=== PATIENT | female | born 1975 | race Caucasian/White ===

== ENCOUNTER → 2017-07-22 | Outpatient (CLI) | payer OTHER ==
[~2017-07-22] MED LIST: ALBU8HFA2 INH; ALBU90I INH; ALBU90OI INH; ALBU90OI61 INH; ALPR.5 PO; AZIT250 PO; Acular3 ML BOTHEYES; Aspir-Trin325 MG PO; BIPOLAR MED; BIRTH CONTROL; BLOOD PRESSURE; CARV25; CARV3.125 PO; CEPH500 PO; CIPR500 PO; CLIN300 PO; CODACE30 PO; CRUTCH4 USE; CYCL10 PO; Cleocin HCl150 MG PO; DEPAKOTE PO; DIAZ10 PO; DIVA500EC; DIVA500EC PO; DOCU100 PO; DOXY100 PO; ERYT.5TO LEFTEYE; FERR325 PO; FURO20 PO; FURO40 PO; Flonase 0.05% N16 GM; GUAI600T33 PO; HYDACE10B PO; HYDACE5 PO; HYDRA50; IBUP600 PO; IBUP800 PO; KCL; Keflex500 MG PO; LASIX; LEVFLO500 PO; LITH300C PO; LITH450ER; MAGCIT300 PO; MONDOXYNE NL100 MG PO; NAPR375 PO; NAPR500 PO; NYST100TC TOP; Norco 5-325 Ta1 EACH PO; OXYACE5T PO; PARO10 PO; PHENA100 PO; POTCHL10ER PO; POTCHL20ER PO; PRED20 PO; PROM25 PO; Percocet 5-3251 EACH PO; Prednisone20 MG PO; QUET100 PO; QUET25; RXCLIN PO; RXPROM25 PO; RXTRAM50 PO; Robaxin500 MG PO; SERT100 PO; SERT25 PO; SULTRIDS PO; TRAM50 PO; TRAZ150T57 PO; TRAZADONE; TRIA80TC TOP; Ultram50 MG PO; Vibramycin100 MG PO; YASMINE; [UNRECOGNIZED DRUG - REMARK]; [UNRECOGNIZED DRUG - REMARK]; [UNRECOGNIZED DRUG - REMARK]; [UNRECOGNIZED DRUG - REMARK]; [UNRECOGNIZED DRUG - REMARK]; [UNRECOGNIZED DRUG - REMARK]; [UNRECOGNIZED DRUG - REMARK]
== END | disposition home or self-care (01) ==
LOC: LAB EV 15:38
DX: N10 Acute pyelonephritis (principal)
CPT/HCPCS: 87086

== ENCOUNTER → 2017-07-25 | Outpatient (CLI) | payer OTHER | LOC: LAB SHORT 16:02 | DX: N39.0 Urinary tract infection, site not specified (principal) | CPT/HCPCS: 87086 ==

== ENCOUNTER 2017-08-12 10:15 | Day surgery (SDC) | payer OTHER ==
[~2017-08-12] VITALS: Ht 172.7 cm; Wt 165.1 kg
== END 2017-08-12 23:34 | disposition home or self-care (01) ==
LOC: ORSCMMR 10:15
PROVIDERS: Internal Medicine Gastroenterology
PROC: 0DBL8ZX Excision of Transverse Colon, Via Natural or Artificial Opening Endoscopic, Diagnostic (ICD-10-PCS; principal; 2017-08-12 10:45)
DX: Z12.11 Encounter for screening for malignant neoplasm of colon (principal); D12.3 Benign neoplasm of transverse colon; Z83.71 Family history of colonic polyps; I89.0 Lymphedema, not elsewhere classified; E11.9 Type 2 diabetes mellitus without complications; I10 Essential (primary) hypertension; Z86.711 Personal history of pulmonary embolism; J45.909 Unspecified asthma, uncomplicated; E66.01 Morbid (severe) obesity due to excess calories; Z68.43 Body mass index [BMI] 50.0-59.9, adult; Z87.891 Personal history of nicotine dependence; Z79.899 Other long term (current) drug therapy
CPT/HCPCS: 82947; 88305; J7120

== ENCOUNTER 2018-02-20 23:30 | Emergency (ER) | payer OTHER ==
[~2018-02-20] VITALS: Ht 175.3 cm; Wt 158.8 kg
[2018-02-21 01:06] LABS: Anion Gap 11 mmol/L (6-16); Blood Urea Nitrogen 7 mg/dL (8-24); CO2, Blood 23 mmol/L (21-32); Calcium, Blood 8.2 mg/dL (8.5-10.1); Chloride, Blood 109 mmol/L (98-108); Glomerular Filtration Rate >60 (60-); Glucose, Blood 85 mg/dL (70-99); Potassium, Blood 3.4 mmol/L (3.5-5.5); Sodium, Blood 143 mmol/L (136-145)
== END 2018-02-21 02:53 | disposition home or self-care (01) ==
LOC: ER 23:30
PROVIDERS: Emergency Medicine
DX: R60.0 Localized edema (principal); F31.9 Bipolar disorder, unspecified; E11.9 Type 2 diabetes mellitus without complications; I10 Essential (primary) hypertension; Z88.0 Allergy status to penicillin; Z88.8 Allergy status to other drugs, medicaments and biological substances; Z79.899 Other long term (current) drug therapy; Z87.891 Personal history of nicotine dependence
CPT/HCPCS: 36415; 80048; 93970; 99284-25

== ENCOUNTER 2018-11-19 23:07 | Emergency (ER) | payer OTHER ==
[~2018-11-19] VITALS: Ht 175.3 cm; Wt 140.2 kg
[2018-11-20] MEDS ORDERED: CETI5 PO (00:37)
== END 2018-11-20 01:40 | disposition home or self-care (01) ==
LOC: ER 23:07
DX: R05 Cough (principal); E11.9 Type 2 diabetes mellitus without complications; F31.9 Bipolar disorder, unspecified; I10 Essential (primary) hypertension; J45.909 Unspecified asthma, uncomplicated; Z88.0 Allergy status to penicillin; Z88.8 Allergy status to other drugs, medicaments and biological substances; Z86.711 Personal history of pulmonary embolism; Z87.891 Personal history of nicotine dependence
CPT/HCPCS: 71046; 93005; 93010; 99283-25

== ENCOUNTER → 2018-12-10 | Outpatient (CLI) | payer OTHER ==
[~2018-12-10] MED LIST changes: +CETI5 PO
== END | disposition home or self-care (01) ==
LOC: LAB SHORT 16:01 → LAB EV 16:01
DX: L08.9 Local infection of the skin and subcutaneous tissue, unspecified (principal)
CPT/HCPCS: 87070; 87077; 87147; 87186; 87205

== ENCOUNTER → 2020-05-06 | Outpatient (CLI) | payer OTHER ==
[2020-05-07 15:08] LABS: HPV 16 Negative (Negative); HPV 18 Negative (Negative); HPV OTHER HR TYPES Negative (Negative)
== END | disposition home or self-care (01) ==
LOC: OLS 14:46 → LAB SHORT 14:46
PROVIDERS: Obstetrics & Gynecology
DX: Z01.419 Encounter for gynecological examination (general) (routine) without abnormal findings (principal)
CPT/HCPCS: 87624; G0123

== ENCOUNTER 2021-04-05 20:57 | Emergency (ER) | payer OTHER ==
[~2021-04-05] VITALS: Ht 175.3 cm; Wt 136.1 kg
[2021-04-05 21:47] LABS: BASOPHILS ABSOLUTE AUTO 0.07 K/mm3 (0.00-0.23); BASOPHILS PERCENT AUTO 0 % (0-2); EOSINOPHILS ABSOLUTE AUTO 0.38 K/mm3 (0.00-0.68); EOSINOPHILS PERCENT AUTO 2 % (0-6); Hematocrit 41.1 % (33.0-51.0); Hemoglobin 13.4 g/dL (11.5-16.0); Mean Corpuscular HGB 24.5 pg (26.0-34.0); Mean Corpuscular HGB Conc 32.6 g/dL (31.5-36.5); Mean Corpuscular Volume 75 fL (80-100); Platelet Count 290 K/mm3 (150-400); RDW Coefficient Variation 18.2 % (11.7-14.2); RDW Standard Deviation 49.3 fL (35.1-46.3); Red Blood Cell Count 5.47 M/mm3 (3.80-5.20); White Blood Cell Count 19.96 K/mm3 (4.00-11.30)
[2021-04-05 21:48] LABS: IMMATURE GRAN ABSOLUTE AUTO 0.17 K/mm3 (0.00-0.10); IMMATURE GRAN PERCENT AUTO 1 % (0-1); LYMPHOCYTES ABSOLUTE AUTO 1.34 K/mm3 (0.84-5.20); LYMPHOCYTES PERCENT AUTO 7 % (21-46); MONOCYTES ABSOLUTE AUTO 2.24 K/mm3 (0.16-1.47); MONOCYTES PERCENT AUTO 11 % (4-13); NEUTROPHILS ABSOLUTE AUTO 15.76 K/mm3 (1.96-9.15); NEUTROPHILS PERCENT AUTO 79 % (41-73)
[2021-04-05 22:04] LABS: Alanine Aminotransfer (ALT/SGP 71 U/L (12-78); Albumin, Blood 2.6 g/dL (3.4-5.0); Albumin/Globulin Ratio 0.5 (0.8-1.8); Alk Phos 147 U/L (50-136); Anion Gap 5 mmol/L (6-16); Aspartate Aminotrans (AST/SGOT 75 U/L (12-37); Bilirubin, Total 0.8 mg/dL (0.1-1.0); Blood Urea Nitrogen 10 mg/dL (8-24); Bun/Creatinine Ratio 11.4 (12.0-20.0); CO2, Blood 23 mmol/L (21-32); Calcium, Blood 9.3 mg/dL (8.5-10.1); Chloride, Blood 111 mmol/L (98-108); Creatinine, Blood 0.88 mg/dL (0.40-1.00); Globulin, Blood 4.8 g/dL (2.2-4.0); Glomerular Filtration Rate >60 (60-); Glucose, Blood 93 mg/dL (70-99); Potassium, Blood 3.6 mmol/L (3.5-5.5); Sodium, Blood 139 mmol/L (136-145); Total Protein, Blood 7.4 g/dL (6.4-8.2)
[2021-04-05 23:06] LABS: Source, Urine Voided
[2021-04-05 23:13] LABS: Bilirubin, Urine Neg (Neg); Blood, Urine 1+ (Neg); Glucose Qualitative, Urine Neg (Neg); Ketones, Urine Neg (Neg); Leukocyte Esterase, Urine 2+ (Neg); Nitrite, Urine Neg (Neg); Protein, Urine 1+ (Neg); Urobilinogen, Urine NORM (Normal); pH, Urine 6.5 (5.0-8.0)
[2021-04-05 23:14] LABS: Appearance, Urine Clear (Clear); Color, Urine Yellow (P-Yellow)
[2021-04-05 23:15] LABS: Bacteria Mod /hpf; Red Blood Cells, Urine 0-2 /hpf (0-2); Squamous Epithelial Cells Mod /hpf (Few)
[2021-04-05] MEDS ORDERED: CEPH500 PO (23:51)
== END 2021-04-06 00:20 | disposition home or self-care (01) ==
LOC: ER 20:57
PROVIDERS: Emergency Medicine; Physician Assistant
DX: L03.116 Cellulitis of left lower limb (principal); I10 Essential (primary) hypertension; E11.9 Type 2 diabetes mellitus without complications; J45.909 Unspecified asthma, uncomplicated; Z88.0 Allergy status to penicillin; Z88.8 Allergy status to other drugs, medicaments and biological substances; Z79.899 Other long term (current) drug therapy; Z86.711 Personal history of pulmonary embolism; Z87.891 Personal history of nicotine dependence
CPT/HCPCS: 36415; 80053; 81001; 85025; 87086; 96374; 96375; 99283-25; J0696; J1885

== ENCOUNTER 2021-05-18 18:57 | Emergency (ER) | payer OTHER ==
[~2021-05-18] VITALS: Ht 175.3 cm; Wt 151.9 kg
== END 2021-05-18 20:57 | disposition home or self-care (01) ==
LOC: ER 18:57
DX: R22.42 Localized swelling, mass and lump, left lower limb (principal); I10 Essential (primary) hypertension; E11.9 Type 2 diabetes mellitus without complications; J45.909 Unspecified asthma, uncomplicated; Z87.891 Personal history of nicotine dependence; Z88.0 Allergy status to penicillin; Z79.899 Other long term (current) drug therapy; Z88.8 Allergy status to other drugs, medicaments and biological substances
CPT/HCPCS: 93971; 99283-25

== ENCOUNTER → 2021-06-05 | Outpatient (CLI) | payer OTHER | END | disposition home or self-care (01) | LOC: LAB 17:03 → LAB SHORT 17:03 | DX: L02.416 Cutaneous abscess of left lower limb (principal) | CPT/HCPCS: 87070; 87075; 87077; 87186; 87205 ==

== ENCOUNTER 2021-06-11 15:21 | Inpatient (IN) | payer OTHER ==
[~2021-06-11] VITALS: Ht 175.3 cm; Wt 151.0 kg
[2021-06-11 16:26] LABS: BASOPHILS ABSOLUTE AUTO 0.05 K/mm3 (0.00-0.23); BASOPHILS PERCENT AUTO 1 % (0-2); EOSINOPHILS ABSOLUTE AUTO 0.47 K/mm3 (0.00-0.68); EOSINOPHILS PERCENT AUTO 6 % (0-6); Hematocrit 38.9 % (33.0-51.0); Hemoglobin 12.4 g/dL (11.5-16.0); IMMATURE GRAN ABSOLUTE AUTO 0.09 K/mm3 (0.00-0.10); IMMATURE GRAN PERCENT AUTO 1 % (0-1); LYMPHOCYTES ABSOLUTE AUTO 2.29 K/mm3 (0.84-5.20); LYMPHOCYTES PERCENT AUTO 29 % (21-46); MONOCYTES ABSOLUTE AUTO 0.76 K/mm3 (0.16-1.47); MONOCYTES PERCENT AUTO 10 % (4-13); Mean Corpuscular HGB 25.4 pg (26.0-34.0); Mean Corpuscular HGB Conc 31.9 g/dL (31.5-36.5); Mean Corpuscular Volume 80 fL (80-100); Mean Platelet Volume 8.3 fL (9.1-12.4); NEUTROPHILS ABSOLUTE AUTO 4.26 K/mm3 (1.96-9.15); NEUTROPHILS PERCENT AUTO 54 % (41-73); Platelet Count 431 K/mm3 (150-400); RDW Coefficient Variation 18.2 % (11.7-14.2); RDW Standard Deviation 52.6 fL (35.1-46.3); Red Blood Cell Count 4.88 M/mm3 (3.80-5.20); White Blood Cell Count 7.92 K/mm3 (4.00-11.30)
[2021-06-11 16:36] LABS: Albumin, Blood 2.4 g/dL (3.4-5.0); Albumin/Globulin Ratio 0.5 (0.8-1.8); Bilirubin, Total 0.4 mg/dL (0.1-1.0); Calcium, Blood 9.3 mg/dL (8.5-10.1); Creatinine, Blood 1.09 mg/dL (0.40-1.00); Globulin, Blood 4.8 g/dL (2.2-4.0); Potassium, Blood 3.9 mmol/L (3.5-5.5); Total Protein, Blood 7.2 g/dL (6.4-8.2)
--- NOTE | 2021-06-11 18:42 | NUR ---
PATIENT WAS A DIRECT ADMIT FROM DR FRANCE'S OFFICE TODAY. PATIENT ARRIVED, ABLE TO AMBULATE WITH NO ISSUES, LYMPHEDEMA NOTED TO BLE. LEFT ANTERIOR THIGH WITH DRESSING THAT WAS SATURATED WITH SEROSANG DRAINAGE, WHEN DR DICK CAME IN TO ROOM WE CHANGED THE DRESSING AT THAT TIME SO HE COULD SEE THE WOULD. SMALL OPEN AREA NOTED, CLEANSED WOUND WITH WOUND CLEANSER, DRESSED WITH 4X4 GAUZE/ABD PAD/ANNA WRAP. DRESSING TO BE CHANGED DAILY AND PRN FOR SOILED/SATURATION. PATIENT IS ALERT AND ORIENTED. ABLE TO MAKE NEEDS AND WANTS KNOWN. CALL LIGHT AND WATER IN EASY REACH. NO SIGNS OR SYMPTOMS ACUTE DISTRESS NOTED. CALLED CT FOR STAT CT ORDER, WILL CALL NIGHT NURSE AT 1999 TO COME GET HER FOR CT. GENERAL SURGERY TO BE CONSULTED AFTER CT DONE PER THE ORDER. PATIENT UP ADLIB IN ROOM, STEADY ON FEET.
--- NOTE | 2021-06-12 08:14 | NUR ---
DR. BOWMAN IN TO SEE PT THIS AM, DENIES ANY NEED FOR PAIN MEDS AT THIS TIME, PLAN FOR OR LATER THIS AFTERNOON.
--- NOTE | 2021-06-12 10:52 | NUR ---
Initial Assessment with [facility] Con[employer] [facility] 1. Who did you speak with? Spoke with patient 2. What is the patient's prior level of functions? Independent ambulatory. The patient has a long-standing boyfriend with whom she lives. The patient has chronic disability secondary to bipolar disorder. Patient presented to outpatient clinic for follow up and found to have evidence of extensive abscess. 3. What is the patient's current living situation? Independent with boyfriend Oleg Osborne. 4. Is the patient and/or family able to provide transportation to and from doctor's appointments and cloth picker prescriptions? Patient drives and has transportation. 5. Does patient still drive? Yes 6. POA/PCP/NOK: PCP-PCP is Dr. Siobhan Cablalero. 7. ANTICIPATED DISCHARGE NEEDS/GOALS: -Return to residence -DME: TBD -HELP AT HOME: TBD 8. List barriers to discharge: No barriers on this date. 9. Discharge Plan: Home 10. PCP Follow up appointment: Will be scheduled within seven calendar days of discharge. 11. OTHER COMMENTS: None
--- NOTE | 2021-06-12 12:25 | NUR ---
DRESSING CHANGE L THIGH DRESSING NOTED SATURATED WITH SEROSANG. DRAINAGE, DRESSING CHANGED, NEW 4X4 AND ABD PAD APPLIED, SECURED WITH ANNA WRAP.
[2021-06-12 12:46] LABS: SARS-Cov-2 (COVID-19) PCR, MMC NEGATIVE (NEGATIVE)
--- NOTE | 2021-06-12 18:28 | NUR ---
PT NPO MOST OF THE DAY FOR OR, SURGERY CANCELLED FOR TOMORROW PER DR. BOWMAN, NPO AFTER MN TONIGHT, DENIES ANY PAIN OR ANY DISCOMFORT, INDEPENDENT TO THE BATHROOM, DSG ON LLE INTACT, NO ACUTE CHANGES THIS SHIFT.
--- NOTE | 2021-06-12 19:20 | NUR ---
recvd report from previous shift JANE Ireland. pt a/o x 4, pleasant/cooperative, talking on the phone. bed in lowest position, bed rails up x 2, call light within reach
--- NOTE | 2021-06-13 05:26 | NUR ---
shift summary: vss, no acute changes. pt denies pain, n/v. pt showered herself during NOC shift. Dressing changes to drain hole x 1 t/o shift with bobby wrap/abd/gauze. pt tolerated regular diet at dinner, NPO at 0000. On nurse rounding, pt appears to be sleeping comfortably.
[2021-06-13 06:57] LABS: Creatinine, Blood 0.88 mg/dL (0.40-1.00); Vancomycin, Trough 21.7 ug/mL (5.0-10.0)
--- NOTE | 2021-06-13 07:00 | NUR ---
[facility] critical lab from [facility] in lab, [facility] level of 21.7, pharmacy notifed.
--- NOTE | 2021-06-13 08:27 | NUR ---
DR. BOWMAN IN TO SEE PATIENT, PLAN IS FOR PROCEDURE THIS MORNING.
--- NOTE | 2021-06-13 08:37 | NUR ---
pt out of room to procedure at this time.
--- NOTE | 2021-06-13 10:20 | NUR ---
PT BACK FROM PROCEDURE AT THIS TIME. SHE REPORTS NO PAIN CURRENTLY BUT A LITTLE DIZZINESS FROM ANESTHESIA. ABLE TO TRANSFER SELF TO BED. TOLERATING PO WELL AT THIS TIME, PROVIDED ICE WATER. LEFT GROIN SITE COVERED WITH ANNA WRAP AND ABD. DRESSING CDI.
[2021-06-13] MEDS ORDERED: HYDR1TAB94 PO (13:40)
[2021-06-13] MEDS ORDERED: LOSA25 PO (13:40)
[2021-06-13] MEDS ORDERED: SERT100 PO (13:41)
[2021-06-13] MEDS ORDERED: LINE600 PO (13:42)
--- NOTE | 2021-06-13 15:08 | NUR ---
DISCHARGE PT LEFT VIA WHEELCHAIR WITH BOYFRIEND AT 1500. ALL BELONGINGS SENT WITH PATIENT. IV REMOVED PRIOR TO DISCHARGE. PT REPORTS PAIN TOLERABLE WITH PO MEDICATIONS. PRESCRIPTIONS SENT WITH PATIENT AND CALLED IN TO [facility]. EXTRA DRESSING SUPPLIES SENT WITH PATIENT INSTRUCTIONS GONE OVER WITH HOW TO CHANGE GONE OVER WITH PATIENT AND SIGNIFICANT OTHER. DENIED FURTHER QUESTIONS.
--- NOTE | 2021-06-15 08:15 | NUR ---
Per Dr. Ware discharge appropriate on 06/13/21. Patient does not oppose discharge. Patient is discharged to home. Patient stated residence is safe with running water, heat, electricity and sewage. Patient's boyfriend provided transportation to their residence. Patient left via wheelchair with her belongings. Extra dressing and supplies sent with patient. No barriers to discharge at this time. Transition of care will contact patient to schedule PCP hospital follow up.
== END 2021-06-13 15:07 | disposition home or self-care (01) | DRG 603 ==
LOC: SURS 15:21
PROVIDERS: Surgery; ADMIT Internal Medicine
PROC: 0J9M0ZZ Drainage of Left Upper Leg Subcutaneous Tissue and Fascia, Open Approach (ICD-10-PCS; principal; 2021-06-13 08:30)
DX: L02.416 Cutaneous abscess of left lower limb (principal); F31.81 Bipolar II disorder; Z68.43 Body mass index [BMI] 50.0-59.9, adult; J30.9 Allergic rhinitis, unspecified; E66.01 Morbid (severe) obesity due to excess calories; B95.62 Methicillin resistant Staphylococcus aureus infection as the cause of diseases classified elsewhere; L03.116 Cellulitis of left lower limb; Z20.822 Contact with and (suspected) exposure to COVID-19; I10 Essential (primary) hypertension; Z88.8 Allergy status to other drugs, medicaments and biological substances; Z88.0 Allergy status to penicillin; Z88.6 Allergy status to analgesic agent
CPT/HCPCS: 36415; 73701; 80053; 80202; 81025; 82565; 83036; 85025; 85651; 87040; 93005; 93010; 97110; 97116; 97161; A9270; J1100; J2250; J2405; J2704; J2765; J3010; J3370; J7030; J7050; Q9967; U0004

== ENCOUNTER 2022-06-21 13:55 | Emergency (ER) | payer OTHER ==
[~2022-06-21] VITALS: Ht 175.3 cm; Wt 98.9 kg
[~2022-06-21 13:55] MED LIST changes: +CEPHALEXIN500 M1 PO; +FAMO20 PO; +HYDR1TAB94 PO; +LINE600 PO; +LOSA25 PO; +ONDA4ODT MM
[2022-06-21 14:48] LABS: BASOPHILS ABSOLUTE AUTO 0.05 K/mm3 (0.00-0.23); BASOPHILS PERCENT AUTO 1 % (0-2); EOSINOPHILS PERCENT AUTO 6 % (0-6); Hemoglobin 11.6 g/dL (11.5-16.0); IMMATURE GRAN ABSOLUTE AUTO 0.03 K/mm3 (0.00-0.10); IMMATURE GRAN PERCENT AUTO 0 % (0-1); LYMPHOCYTES ABSOLUTE AUTO 2.21 K/mm3 (0.84-5.20); LYMPHOCYTES PERCENT AUTO 22 % (21-46); MONOCYTES PERCENT AUTO 11 % (4-13); Mean Corpuscular HGB 20.1 pg (26.0-34.0); Mean Corpuscular HGB Conc 30.5 g/dL (31.5-36.5); Mean Corpuscular Volume 66 fL (80-100); NEUTROPHILS ABSOLUTE AUTO 6.15 K/mm3 (1.96-9.15); NEUTROPHILS PERCENT AUTO 61 % (41-73); Platelet Count 331 K/mm3 (150-400); RDW Coefficient Variation 23.8 % (11.7-14.2); RDW Standard Deviation 52.8 fL (35.1-46.3); Red Blood Cell Count 5.78 M/mm3 (3.80-5.20); White Blood Cell Count 10.14 K/mm3 (4.00-11.30)
[2022-06-21 15:03] LABS: Albumin, Blood 3.2 g/dL (3.4-5.0); Albumin/Globulin Ratio 0.8 (0.8-1.8); Bilirubin, Total 0.6 mg/dL (0.1-1.0); Bun/Creatinine Ratio 14.5 (12.0-20.0); Creatinine, Blood 0.83 mg/dL (0.40-1.00); Globulin, Blood 3.8 g/dL (2.2-4.0); Potassium, Blood 4.2 mmol/L (3.5-5.5)
[2022-06-21 15:15] LABS: Source, Urine Clean Catch
[2022-06-21 15:19] LABS: Appearance, Urine Clear (Clear); Bilirubin, Urine Neg (Neg); Blood, Urine Neg (Neg); Color, Urine Yellow (P-Yellow); Glucose Qualitative, Urine Neg (Neg); Ketones, Urine Neg (Neg); Leukocyte Esterase, Urine Neg (Neg); Nitrite, Urine Neg (Neg); Protein, Urine 1+ (Neg); Specific Gravity, Urine 1.015 (1.003-1.022); Urobilinogen, Urine NORM (Normal)
[2022-06-21] MEDS ORDERED: PROM25 PO (19:01)
== END 2022-06-21 19:00 | disposition home or self-care (01) ==
LOC: ER 13:55
PROVIDERS: Student in an Organized Health Care Education/Training Program
DX: R10.9 Unspecified abdominal pain (principal); E11.9 Type 2 diabetes mellitus without complications; I10 Essential (primary) hypertension; Z79.899 Other long term (current) drug therapy
CPT/HCPCS: 36415; 80053; 83690; 85025

== ENCOUNTER → 2024-05-28 | Outpatient (CLI) | payer OTHER ==
[~2024-05-28] MED LIST changes: +Bactrim Ds Tab1 EACH PO; +K-Dur20 MEQ PO
== END ==
LOC: LAB 17:40 → LAB SHORT 17:40
DX: R60.0 Localized edema (principal)
CPT/HCPCS: 87070; 87077; 87147; 87186; 87205

== ENCOUNTER 2024-06-02 11:01 | Emergency (ER) | payer OTHER ==
[~2024-06-02] VITALS: Ht 175.3 cm; Wt 158.8 kg
[~2024-06-02 11:01] MED LIST changes: -Bactrim Ds Tab1 EACH PO; -K-Dur20 MEQ PO
[2024-06-02 11:47] LABS: BASOPHILS ABSOLUTE AUTO 0.04 K/mm3 (0.00-0.23); BASOPHILS PERCENT AUTO 1 % (0-2); EOSINOPHILS ABSOLUTE AUTO 0.32 K/mm3 (0.00-0.68); EOSINOPHILS PERCENT AUTO 4 % (0-6); Hematocrit 43.8 % (33.0-51.0); Hemoglobin 14.6 g/dL (11.5-16.0); IMMATURE GRAN ABSOLUTE AUTO 0.02 K/mm3 (0.00-0.10); IMMATURE GRAN PERCENT AUTO 0 % (0-1); LYMPHOCYTES ABSOLUTE AUTO 1.43 K/mm3 (0.84-5.20); LYMPHOCYTES PERCENT AUTO 17 % (21-46); MONOCYTES ABSOLUTE AUTO 0.85 K/mm3 (0.16-1.47); MONOCYTES PERCENT AUTO 10 % (4-13); Mean Corpuscular HGB 29.5 pg (26.0-34.0); Mean Corpuscular HGB Conc 33.3 g/dL (31.5-36.5); Mean Corpuscular Volume 89 fL (80-100); Mean Platelet Volume 9.5 fL (9.1-12.4); NEUTROPHILS ABSOLUTE AUTO 5.63 K/mm3 (1.96-9.15); NEUTROPHILS PERCENT AUTO 68 % (41-73); Platelet Count 282 K/mm3 (150-400); RDW Coefficient Variation 14.7 % (11.7-14.2); RDW Standard Deviation 47.5 fL (35.1-46.3); Red Blood Cell Count 4.95 M/mm3 (3.80-5.20); White Blood Cell Count 8.29 K/mm3 (4.00-11.30)
[2024-06-02 12:06] LABS: Albumin/Globulin Ratio 0.8 (0.8-1.8); Bilirubin, Total 1.3 mg/dL (0.1-1.0); Bun/Creatinine Ratio 13.5 (12.0-20.0); Calcium, Blood 8.8 mg/dL (8.5-10.1); Creatinine, Blood 0.82 mg/dL (0.40-1.00); Globulin, Blood 3.6 g/dL (2.2-4.0); Potassium, Blood 3.3 mmol/L (3.5-5.5); Total Protein, Blood 6.6 g/dL (6.4-8.2)
[2024-06-02] MEDS ORDERED: Doxycycline Hyclate 100 MG TAB PO ONE (13:50)
[2024-06-02] MEDS ORDERED: Furosemide 10 MG/ML 4ML Vial IV ONE (13:50)
[2024-06-02] MEDS ORDERED: HYDROcodone 5-APAP 325 TAB PO ONE (13:50)
[2024-06-02] MEDS ORDERED: CeFAZolin Sodium 2,000 MG in NS 100 ML IV ONE (13:50)
[2024-06-02] MEDS ORDERED: Potassium Chloride 20 MEQ TabCR PO ONE (14:50)
[2024-06-02 15:30] VITALS: BP 170/97
[2024-06-02] MEDS ORDERED: CEPH500 PO (15:59)
[2024-06-02] MEDS ORDERED: Bactrim Ds Tab1 EACH PO (15:59)
[2024-06-02] MEDS ORDERED: K-Dur20 MEQ PO (15:59)
[2024-06-02] MEDS ORDERED: HYDR1TAB94 PO (15:59)
== END 2024-06-02 16:09 | disposition home or self-care (01) ==
LOC: ER 11:01
PROVIDERS: Student in an Organized Health Care Education/Training Program
DX: L03.115 Cellulitis of right lower limb (principal); I89.0 Lymphedema, not elsewhere classified; E11.9 Type 2 diabetes mellitus without complications; J45.909 Unspecified asthma, uncomplicated; I10 Essential (primary) hypertension; Z87.891 Personal history of nicotine dependence; Z79.899 Other long term (current) drug therapy; Z88.6 Allergy status to analgesic agent; Z88.0 Allergy status to penicillin; Z88.8 Allergy status to other drugs, medicaments and biological substances
CPT/HCPCS: 73701; 80053; 85025; 96365-59; 96375-59; 99284-25; A9270; J0690; J1940; Q9967

== ENCOUNTER → 2024-08-20 | Outpatient (CLI) | payer OTHER ==
[~2024-08-20] MED LIST changes: +Bactrim Ds Tab1 EACH PO; +K-Dur20 MEQ PO
[2024-08-24 08:29] LABS: HPV HIGH RISK BY TMA Not Detected; HPV SOURCE Cervical
== END | disposition home or self-care (01) ==
LOC: LAB 16:29 → LAB SHORT 16:29
PROVIDERS: Advanced Practice Midwife
DX: Z01.419 Encounter for gynecological examination (general) (routine) without abnormal findings (principal)
CPT/HCPCS: 87624; G0123

== ENCOUNTER 2025-02-12 06:31 | Emergency (ER) | payer OTHER ==
[~2025-02-12] VITALS: Ht 175.3 cm; Wt 181.4 kg
[2025-02-12] MEDS ORDERED: Ondansetron HCl 2 MG / ML 2ML Vial IV ONE (06:50)
[2025-02-12] MEDS ORDERED: Pantoprazole Sodium 40 MG Injection IV ONE (06:50)
[2025-02-12 07:02] LABS: BASOPHILS ABSOLUTE AUTO 0.04 K/mm3 (0.00-0.23); BASOPHILS PERCENT AUTO 1 % (0-2); EOSINOPHILS ABSOLUTE AUTO 0.71 K/mm3 (0.00-0.68); EOSINOPHILS PERCENT AUTO 11 % (0-6); Hematocrit 41.8 % (33.0-51.0); Hemoglobin 13.6 g/dL (11.5-16.0); IMMATURE GRAN ABSOLUTE AUTO 0.01 K/mm3 (0.00-0.10); IMMATURE GRAN PERCENT AUTO 0 % (0-1); LYMPHOCYTES ABSOLUTE AUTO 1.73 K/mm3 (0.84-5.20); LYMPHOCYTES PERCENT AUTO 26 % (21-46); MONOCYTES ABSOLUTE AUTO 0.66 K/mm3 (0.16-1.47); MONOCYTES PERCENT AUTO 10 % (4-13); Mean Corpuscular HGB Conc 32.5 g/dL (31.5-36.5); Mean Corpuscular Volume 84 fL (80-100); NEUTROPHILS ABSOLUTE AUTO 3.50 K/mm3 (1.96-9.15); NEUTROPHILS PERCENT AUTO 53 % (41-73); NRBC ABSOLUTE 0.00 K/mm3 (0.00-0.02); NRBC Auto 0.0 /100 WBC (0.0-0.2); Platelet Count 277 K/mm3 (150-400); RDW Coefficient Variation 15.1 % (11.7-14.2); RDW Standard Deviation 46.1 fL (35.1-46.3)
[2025-02-12 07:21] LABS: Alanine Aminotransfer (ALT/SGP 26.0 U/L (12-78); Albumin, Blood 2.8 g/dL (3.4-5.0); Albumin/Globulin Ratio 0.7 (0.8-1.8); Anion Gap 9.0 mmol/L (3-11); Aspartate Aminotrans (AST/SGOT 37.0 U/L (12-37); Bilirubin, Total 1.1 mg/dL (0.1-1.0); Blood Urea Nitrogen 7.0 mg/dL (8-24); CO2, Blood 26.0 mmol/L (21-32); Calcium, Blood 8.9 mg/dL (8.5-10.1); Chloride, Blood 110.0 mmol/L (98-108); Creatinine, Blood 0.84 mg/dL (0.40-1.00); Globulin, Blood 3.9 g/dL (2.2-4.0); Glucose, Blood 99.0 mg/dL (70-99); Potassium, Blood 3.5 mmol/L (3.5-5.5); Sodium, Blood 141.0 mmol/L (136-145); Total Protein, Blood 6.7 g/dL (6.4-8.2)
[2025-02-12 08:04] LABS: Bilirubin, Urine Neg (Neg); Color, Urine Yellow (P-Yellow); Glucose Qualitative, Urine Neg (Neg); Ketones, Urine Neg (Neg); Leukocyte Esterase, Urine Neg (Neg); Protein, Urine 1+ (Neg); Specific Gravity, Urine 1.005 (1.003-1.022); Urobilinogen, Urine NORM (Normal)
[2025-02-12] MEDS ORDERED: ONDA4ODT MM (09:08)
[2025-02-12] MEDS ORDERED: LOPE2C PO (09:08)
[2025-02-12 09:21] VITALS: BP 124/78
== END 2025-02-12 09:22 | disposition home or self-care (01) ==
LOC: ER 06:31
PROVIDERS: Emergency Medicine
DX: K80.20 Calculus of gallbladder without cholecystitis without obstruction (principal); R10.13 Epigastric pain; R19.7 Diarrhea, unspecified; E11.9 Type 2 diabetes mellitus without complications; J45.909 Unspecified asthma, uncomplicated; I10 Essential (primary) hypertension; Z86.718 Personal history of other venous thrombosis and embolism; Z86.711 Personal history of pulmonary embolism; Z87.891 Personal history of nicotine dependence; Z88.8 Allergy status to other drugs, medicaments and biological substances; Z88.6 Allergy status to analgesic agent; Z88.0 Allergy status to penicillin; Z79.899 Other long term (current) drug therapy
CPT/HCPCS: 76705; 80053; 81001; 83690; 85025; 96374; 96375; 99284-25; A9270; J2405; J2470

== ENCOUNTER 2025-06-21 13:59 | Emergency (ER) | payer OTHER ==
[~2025-06-21] VITALS: Ht 175.3 cm; Wt 158.8 kg
[~2025-06-21 13:59] MED LIST changes: +LOPE2C PO
[2025-06-21 14:06] VITALS: BP 138/80
[2025-06-21 14:20] LABS: BASOPHILS ABSOLUTE AUTO 0.04 K/mm3 (0.00-0.23); BASOPHILS PERCENT AUTO 1 % (0-2); EOSINOPHILS ABSOLUTE AUTO 0.41 K/mm3 (0.00-0.68); EOSINOPHILS PERCENT AUTO 6 % (0-6); Hematocrit 43.6 % (33.0-51.0); Hemoglobin 14.3 g/dL (11.5-16.0); IMMATURE GRAN ABSOLUTE AUTO 0.03 K/mm3 (0.00-0.10); IMMATURE GRAN PERCENT AUTO 0 % (0-1); LYMPHOCYTES ABSOLUTE AUTO 2.66 K/mm3 (0.84-5.20); LYMPHOCYTES PERCENT AUTO 35 % (21-46); MONOCYTES ABSOLUTE AUTO 0.87 K/mm3 (0.16-1.47); MONOCYTES PERCENT AUTO 12 % (4-13); Mean Corpuscular HGB Conc 32.8 g/dL (31.5-36.5); Mean Corpuscular Volume 85 fL (80-100); NEUTROPHILS ABSOLUTE AUTO 3.51 K/mm3 (1.96-9.15); NEUTROPHILS PERCENT AUTO 47 % (41-73); NRBC ABSOLUTE 0.00 K/mm3 (0.00-0.02); NRBC Auto 0.0 /100 WBC (0.0-0.2); Platelet Count 299 K/mm3 (150-400); RDW Coefficient Variation 15.8 % (11.7-14.2); RDW Standard Deviation 48.1 fL (35.1-46.3)
[2025-06-21 14:49] LABS: Alanine Aminotransfer (ALT/SGP 26.0 U/L (12-78); Albumin, Blood 3.0 g/dL (3.4-5.0); Albumin/Globulin Ratio 0.9 (0.8-1.8); Anion Gap 9.0 mmol/L (3-11); Aspartate Aminotrans (AST/SGOT 36.0 U/L (12-37); Bilirubin, Total 0.7 mg/dL (0.1-1.0); Blood Urea Nitrogen 19.0 mg/dL (8-24); CO2, Blood 25.0 mmol/L (21-32); Calcium, Blood 9.4 mg/dL (8.5-10.1); Chloride, Blood 108.0 mmol/L (98-108); Creatinine, Blood 0.97 mg/dL (0.40-1.00); Globulin, Blood 3.4 g/dL (2.2-4.0); Glucose, Blood 101.0 mg/dL (70-99); Potassium, Blood 4.1 mmol/L (3.5-5.5); Sodium, Blood 138.0 mmol/L (136-145); Total Protein, Blood 6.4 g/dL (6.4-8.2)
[2025-06-21] MEDS ORDERED: ALBU90OI INH (18:33)
== END 2025-06-21 18:29 | disposition home or self-care (01) ==
LOC: ER 13:59
PROVIDERS: Emergency Medicine
DX: R06.02 Shortness of breath (principal); R07.9 Chest pain, unspecified; E11.9 Type 2 diabetes mellitus without complications; J45.909 Unspecified asthma, uncomplicated; I10 Essential (primary) hypertension; Z87.891 Personal history of nicotine dependence; Z79.899 Other long term (current) drug therapy; Z88.6 Allergy status to analgesic agent; Z88.0 Allergy status to penicillin; Z88.8 Allergy status to other drugs, medicaments and biological substances
CPT/HCPCS: 71046; 80053; 83880; 84484; 85025; 93005; 93010; 99285-25; A9270